=== PATIENT | male | born 1940 | race Caucasian/White ===

== ENCOUNTER 2019-08-17 13:56 | Inpatient (IN) | payer MEDICARE ==
[2019-08-17] MEDS ORDERED: hydrALAZINE 20 MG/ML VIAL ONE (14:35)
[2019-08-17] MEDS ORDERED: Acetaminophen 500 MG TAB PO PRN (15:59)
[2019-08-17] MEDS ORDERED: Ondansetron PF 4 MG/2 ML Vial IVP PRN (15:59)
[2019-08-17] MEDS ORDERED: hydrALAZINE 20 MG/ML VIAL SLOW IVP PRN (15:59)
[2019-08-17] MEDS ORDERED: Ondansetron ODT 4 MG TAB PO PRN (15:59)
[2019-08-17] MEDS ORDERED: Labetalol HCl 100 MG/20 ML VIAL SLOW IVP PRN (15:59)
[2019-08-17] MEDS ORDERED: Aspirin 325 mg Enteric Coated Tablet PO SCH (16:15)
--- NOTE | 2019-08-17 16:54 | MRI ---
MRI Brain WO Con: 08/17/2019 3:59 PM CLINICAL HISTORY: Stroke. COMPARISON: Head CT earlier same day FINDINGS: Exam is limited by persistent patient motion. Extra axial spaces: Mild prominence, due to parenchymal volume loss. Acute infarction: Multifocal restricted diffusion of the right cerebral hemisphere, within the right MCA distribution is present, consistent with multifocal recent infarctions. Ventricular system: Normal in size and morphology for the patient's age. Basal cisterns: Normal. Abnormal distal right carotid flow void. Cerebral parenchyma: Microvascular ischemic changes. Midline shift: None. Cerebellum: Normal. Brainstem: Normal. Paranasal sinuses:Clear IMPRESSION:Multifocal recent infarctions of right MCA distribution. Associated, abnormal right carotid artery flow void.
--- NOTE | 2019-08-17 18:55 | HP ---
PRIMARY CARE PROVIDER: Salena Pack. CHIEF COMPLAINT: Trouble speaking. 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 The patient was last seen normal approximately 11 p.m. on 08/16/2019. The patient apparently was doing regular activities including using his tractor for mowing around their property on 08/16 without difficulty. The patient was noted with difficulty forming words and unintelligible speech. The made to the spit out his chewing tobacco to see if this improved. However, he continued to have difficulty with slurred speech. The patient denied any unilateral weakness, visual disturbance, or cough. The patient has had periodic and sparse medical care over the years and takes only a proton pump inhibitor occasionally for reflux. 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 The patient denies any chronic or routine use of aspirin or cholesterol medications. The patient has had some shortness of breath noticeable in the last 24 to 48 hours of unclear cause. In the emergency room, the patient underwent general evaluation including CT of the brain showing a right frontotemporal infarct. CT angiogram of the head and neck also revealed carotid artery occlusion with collateral flow. The patient received hydralazine in the emergency room in addition to aspirin 324 mg. The patient's speech improved prior to evaluation in the emergency room and denies any unilateral weakness. PAST MEDICAL HISTORY: 1. Smokeless tobacco use. 2. Gastroesophageal reflux disease. 3. Seasonal allergies. 4. History of acute pancreatitis, unknown etiology. PAST SURGICAL HISTORY: Status post left knee replacement. CURRENT MEDICATIONS: Prevacid 30 mg 2 tablets p.o. daily. ALLERGIES: NO KNOWN DRUG ALLERGIES. FAMILY HISTORY: Positive for hypertension. SOCIAL HISTORY: Resides near [place], [place]. Accompanied by his and son in the emergency room. Smokeless tobacco use since the 1949s. Occasional alcohol use. No illicit drug use. REVIEW OF SYSTEMS: CONSTITUTIONAL: Negative for weight loss or gain, ability to conduct usual activities. SKIN: Negative for rash, itching. EYES: Negative for double vision, pain. ENT/MOUTH: Negative for nose bleeding, neck stiffness, pain, tenderness. CARDIOVASCULAR: Negative for palpitations, dyspnea on exertion, orthopnea. RESPIRATORY: Negative for shortness of breath, wheezing, cough, hemoptysis, fever or night sweats. GASTROINTESTINAL: Negative for poor appetite, abdominal pain, heartburn, nausea, vomiting, constipation, or diarrhea. GENITOURINARY: Negative for urgency, frequency, dysuria, nocturia. MUSCULOSKELETAL: Negative for pain, swelling. NEUROLOGIC/PSYCHIATRIC: Negative for anxiety, depression. ALLERGY/IMMUNOLOGIC: Negative for skin rash, bleeding tendency. Otherwise, negative except as stated per HPI. PHYSICAL EXAMINATION: VITAL SIGNS: On admission, blood pressure 212/111, pulse 65, respiratory rate 20, temperature 98 degrees Fahrenheit, and O2 saturation 98% on room air. GENERAL APPEARANCE: This is an 79-year-old male, alert, responsive, and in no acute distress. HEENT: Pupils are equal, round, and reactive to light and accommodation. Extraocular muscles are intact. No scleral icterus. No conjunctival injection. Nares patent. OP is clear. Nicotine staining to all teeth. NECK: Supple. No cervical adenopathy. No thyromegaly. No carotid bruits. No JVD appreciated. Cervical spine with full active and passive range of motion. No meningeal signs noted. CHEST: Lungs are clear to auscultation bilaterally. CARDIOVASCULAR: S1 and S2 without noted murmur, rub, or gallop. ABDOMEN: Obese, soft, nontender, and nondistended. Bowel sounds are positive in all 4 quadrants. There is no hepatosplenomegaly. No abdominal bruits. No rebound or guarding appreciated. EXTREMITIES: Warm and dry with fair turgor. No clubbing, cyanosis, or asymmetric edema appreciated. Pulses palpable distally at the dorsalis pedis, posterior tibial, and popliteal arteries bilaterally. Capillary refill less than 2 seconds. NEUROLOGIC: Mild dysarthria. Rest of the cranial nerves 2 through 12 is grossly intact. No other focal or lateralizing signs appreciated. The patient not observed ambulatory during this exam. PERTINENT LABORATORY AND X-RAY FINDINGS: BUN 15, creatinine 1.49, estimated GFR 45, calcium 9.7, total bilirubin 1.3. LFTs within normal limits. Troponin-I negative x1. BNP 19.9. Albumin 4.4. CBC showed a white blood cell count of 7.1, hemoglobin 17, hematocrit 54, platelet count 260, with normal differential. PT 12.1, INR 0.9, and PTT 26.4. CT of the brain without contrast dated 08/17/2019, showed right frontotemporal infarct. CT angiogram of the head and neck showed complete occlusion of the right carotid bifurcation and proximal right internal carotid artery with collateral flow. EKG dated 08/17/2019, by my interpretation, shows sinus mechanism with heart rates in the 80s. Normal R-wave progression noted in the precordial leads. Normal axis. Low voltage QRS tracing noted. No acute ST-T wave changes appreciated. ASSESSMENT AND PLAN: 1. Acute right frontotemporal cerebrovascular accident. Questionable ischemic versus embolic. The patient will be admitted to the stroke unit. Given the patient's right carotid artery stenosis, embolic phenomenon potential. Continue aspirin 325 mg daily. Continue general stroke protocol with neurology consultation. PT, OT, and speech therapy evaluation. Check fasting lipid profile in the a.m. Check 2D transthoracic echocardiogram. 2. Right carotid artery stenosis. Questionable acute/subacute process. Consult Vascular Surgery Service for recommendations and management. Likely a chronic condition and may consider medical therapy as priority. 3. Chronic kidney disease stage 3. Avoid nephrotoxic agents and limit contrast exposure. Repeat creatinine and monitor trend. 4. Hypertensive crisis. Continue permissive hypertension per acute stroke protocol. IV hydralazine/labetalol p.r.n. 5. Smokeless tobacco abuse. Initiate transdermal nicotine at 14 mg daily. 6. Prophylaxis. SCDs while in bed. Pepcid 20 mg p.o. b.i.d. 7. Code status is full. Surrogate medical decision maker is the patient's spouse. Job ID: [id number]
[2019-08-17] MEDS: Atorvastatin Calcium 40 MG TAB PO SCH (22:12)
[2019-08-17] MEDS: Famotidine 20 MG TAB PO SCH (22:12)
[2019-08-17] MEDS: Nicotine 14 MG PATCH TD SCH (22:13)
[2019-08-17 22:27] VITALS: BMI 32.5
[2019-08-18 04:48] LABS: Hemoglobin 16.4 g/dL (14.0-18.0); Mean Corpuscular HGB CONC 32.4 g/dL (32.0-36.0); Mean Corpuscular Hemoglobin 29.9 pg (27.0-31.0); Mean Corpuscular Volume 92.2 fL (78.0-98.0); Mean Platelet Volume 7.7 fL (7.4-10.4); Platelet Count 255 thou/uL (130-400); RBC Distribution Width 12.8 % (11.5-14.5); Red Blood Cell (RBC) Count 5.49 mill/uL (4.70-6.10); White Blood Cell (WBC) Count 8.3 thou/uL (4.8-10.8)
[2019-08-18 04:49] LABS: Eosinophils 3 % (0-10); Lymphocytes 23 % (21-51); MDiff Complete? YES; Monocytes 8 % (0-10); Neutrophil 66 % (42-75); Platelet Morphology Comment Appears Adequate
[2019-08-18 04:58] LABS: Anion Gap 13 mmol/L (10-20); BUN (Urea Nitrogen) 15 mg/dL (8.4-25.7); Calc. Creatinine Clearance 56 mL/min (70-130); Carbon Dioxide 24 mmol/L (23-31); Cardiac Risk 4.9 (Less than 4.5); Chloride 104 mmol/L (98-107); Cholesterol 197 mg/dl (< 200 Desired); Estimated GFR-MDRD 49; Glucose 105 mg/dL (83-110); HDL Cholesterol 40 mg/dL (>60 Neg Risk); LDL Cholesterol, Calculated 144 mg/dL; Potassium 3.8 mmol/L (3.5-5.1); Sodium 137 mmol/L (136-145); Triglycerides 63 mg/dL (Less than 150)
[2019-08-18] MEDS: Famotidine 20 MG TAB PO SCH ×2 (07:53→21:03)
[2019-08-18] MEDS ORDERED: Aspirin 325 mg Enteric Coated Tablet PO SCH (09:00)
--- NOTE | 2019-08-18 11:21 | CON ---
DATE OF TELEMEDICINE CONSULTATION: 08/18/2019 CHIEF COMPLAINT: Dysarthria. HISTORY OF PRESENT ILLNESS: The patient reports that his brought him to the hospital because of speech problems. His blood pressure was high when he came in. He did not report any weakness or any tingling or numbness or dizziness, loss of consciousness or other symptoms. PREVIOUS MEDICAL HISTORY: The patient has history of gastroesophageal reflux disease and pancreatitis per chart, but he denies both. He also uses smokeless tobacco and he has seasonal allergies. PAST SURGICAL HISTORY: He is status post left knee replacement in the past. MEDICATIONS: At home, he takes Prevacid 2 tablets per day. ALLERGIES: NO KNOWN DRUG ALLERGIES. FAMILY HISTORY: His father at 52 from an [place]. Mother in her 70s from cancer. There is no family history of CVA. He has 2 sisters, one passed at 65. He is not sure why, but she was in [place]. His other sister is 40 and is healthy. SOCIAL HISTORY: He lives with his . He uses smokeless tobacco and occasional alcohol. No drug use. REVIEW OF SYSTEMS: PULMONARY: Negative for shortness of breath or cough. GI: Negative for nausea, vomiting, or diarrhea. NEUROLOGIC: Positive for dysarthria, which was transient. DERMATOLOGIC: Negative for any skin rash. HEMATOLOGIC: Negative for any bleeding, diathesis, or any platelet dysfunction. PSYCHIATRIC: Negative for depression or anxiety. OPHTHALMOLOGIC: Negative for any vision issues. LABORATORY DATA: White count 8.3, hemoglobin 16.4, hematocrit 50.6, platelet count 255. Chemistry; sodium 137, potassium 3.8, chloride 104, bicarb 24, BUN 15, creatinine 1.9, glucose 105. BNP 19.9. Cholesterol and lipid profile are within normal limits and his MRI of the brain was completed yesterday and brain MRI shows multifocal recent infarcts in the right MCA distribution and associated abnormal right carotid flow void and CT angiogram of the little traverse of [place] with contrast also showed the same finding with blockage in the right MCA segment. I did not find a CT angio of the neck area. Echocardiogram is pending. PHYSICAL EXAMINATION: VITAL SIGNS: Temperature 98, pulse 74, blood pressure 123/80, respiratory rate 18, and O2 sats 95. CHEST: Clear vesicular breathing. CARDIOVASCULAR: S1 and S2 heard. No murmurs. ABDOMEN: Soft and nontender. No organomegaly noted. NEUROLOGIC: Higher intellectual functions; normal orientation to time, place, and person. Appropriate conversation. Cranial nerve examination normal. Pupils 2 mm bilaterally and normal extraocular movements. Tongue midline. No atrophy noted. Very mild right facial asymmetry noted and hearing is normal. Motor exam; bulk normal, tone normal. Strength 5/5 in iliopsoas, hamstrings, quadriceps, ankle dorsiflexion, plantar flexion, deltoid, biceps, triceps, wrist extension and flexion, finger extension and flexion bilaterally. Cerebellar, normal [id number], hlvq-[id number]-[id number], and sensory normal touch bilaterally. Deep tendon reflexes 1+ throughout. Gait not tested. IMPRESSION: The patient is an 79-year-old man with family history of myocardial infarction and cancer, comes in with history of dysarthria and he does not give any history of prior strokes or any neurological events. His current examination is normal. However, he has blocked ICA in the right along with strokes in the right MCA distribution. At this time, it is important to find out whether he is a candidate for carotid endarterectomy. TREATMENT PLAN: Continue aspirin and statin for now. Please obtain CT angiogram of the neck, I ordered that study. Please complete his stroke workup including echocardiogram. I will see the patient tomorrow. Job ID: [id number] [facility]
--- NOTE | 2019-08-18 12:29 | PDOC.HOSPP ---
- Subjective Encounter Date: 08/18/19 Encounter Time: 09:00 Subjective: awake, a bit emotional no weakness in his extremities is able to communicate better this morning ate his breakfast well with no choking. - Objective Vital Signs & Weight: Vital Signs (12 hours) Temp Pulse Pulse Pulse Resp BP BP 08/18/19 11:45 97.7 F 78 18 08/18/19 11:10 79 85 162/70 H 123/71 08/18/19 07:49 98 F 74 18 08/18/19 03:30 98.7 F 79 22 H BP Pulse Ox 08/18/19 11:45 147/69 H 95 08/18/19 11:10 08/18/19 07:49 123/80 95 08/18/19 03:30 159/88 H 96 Weight Weight 206 lb 12.8 oz I&O: 08/17/19 08/18/19 08/19/19 06:59 06:59 06:59 Intake Total 480 Balance 480 Result Diagrams: 08/18/19 04:06 08/18/19 04:06 Hospitalist ROS - Medication Medications: Active Medications Generic Name Dose Route Start Last Admin Trade Name Freq PRN Reason Stop Dose Admin Atorvastatin Calcium 40 mg 08/17/19 21:00 08/17/19 22:12 Lipitor PO 40 mg HS AMAN Administration Famotidine 20 mg 08/17/19 21:00 08/18/19 07:53 Pepcid PO 20 mg BID AMAN Administration Nicotine 14 mg 08/17/19 16:00 08/17/19 22:13 Nicoderm Patch TD Not Given Q24HR AMAN - Exam General Appearance: NAD, awake alert Eye: PERRL, anicteric sclera ENT: no oropharyngeal lesions, moist mucosa Neck: supple, no JVD Heart: RRR, no murmur Respiratory: no wheezes, no rales Gastrointestinal: soft, non-tender, non-distended, normal bowel sounds Extremities: no cyanosis, no edema Neurological - other findings: no focal motor deficits, is right handed Psychiatric: normal affect, A&O x 3 Hosp A/P (1) Acute CVA (cerebrovascular accident) Code(s): I63.9 - CEREBRAL INFARCTION, UNSPECIFIED Status: Acute (2) HTN (hypertension) Code(s): I10 - ESSENTIAL (PRIMARY) HYPERTENSION Status: Chronic Qualifiers: Hypertension type: essential hypertension Qualified Code(s): I10 - Essential (primary) hypertension (3) CKD (chronic kidney disease) stage 2, GFR 60-89 ml/min Code(s): N18.2 - CHRONIC KIDNEY DISEASE, STAGE 2 (MILD) Status: Chronic (4) Dyslipidemia Code(s): E78.5 - HYPERLIPIDEMIA, UNSPECIFIED Status: Chronic (5) Carotid artery disease Code(s): I73.9 - PERIPHERAL VASCULAR DISEASE, UNSPECIFIED Status: Acute Qualifiers: Carotid artery disease type: occlusion Laterality: right Qualified Code(s ): I65.21 - Occlusion and stenosis of right carotid artery - Plan is on asp, lipitor htn is well controlled CTA showed right carotid occlusion at bifurcation MRI showed multifocal right mca infarcts might have underlying afib as well, current rhythm is sinus echo is pending PT/OT and speech eval spiritual consult gentle iv hydration x1 liter NS
[2019-08-18] MEDS ORDERED: Sodium Chloride 0.9% 1,000 ML IV SCH (12:45)
--- NOTE | 2019-08-18 16:01 | RAD ---
AP CHEST: 08/18/19 INDICATION: Question infiltrate or pneumonia. COMPARISON: 11/22/17. Borderline cardiomegaly. The lungs appear well aerated and clear. No evidence of infiltrate or vascul ar congestion. IMPRESSION: No acute lung process identified. POS: TPC
[2019-08-18] MEDS: Nicotine 14 MG PATCH TD SCH (17:11)
--- NOTE | 2019-08-18 17:51 | CON ---
DATE OF CONSULTATION: 08/18/2019 REASON FOR CONSULTATION: Evaluate the patient with right hemispheric stroke and occluded right carotid artery. HISTORY OF PRESENT ILLNESS: Mr. Arias was in his usual state of health yesterday. His went to visit him on the tractor and found him to be dysarthric. He was unable to find his words. She took him to the emergency department in [place], and by the time they arrived, his aphasia had completely resolved. Workup has included an MRI of the brain, which shows multiple acute infarcts. CT angiogram of the neck shows an occluded right internal carotid artery at the bifurcation. The patient has no previous history of cerebrovascular disease. He does use tobacco. He states he has no previous cardiac history. PAST MEDICAL HISTORY: 1. GERD. 2. History of pancreatitis. PAST SURGICAL HISTORY: Left knee replacement. MEDICATIONS: Prevacid 60 mg daily. ALLERGIES: NONE. SOCIAL HISTORY: He lives in [place]. He chews tobacco. REVIEW OF SYSTEMS: Negative except as above. PHYSICAL EXAMINATION: GENERAL: This is a moderately obese gentleman, resting comfortably on the telemetry unit. VITAL SIGNS: Height 5 feet 7 inches, weight is not measured, temperature is 98.7, pulse is 79 and regular, and blood pressure is 159/88. HEENT: Sclerae nonicteric. Pupils are equal and round bilaterally. NECK: Supple. He does not have a carotid bruit. CHEST: Clear bilaterally. HEART: Rhythm is regular without murmur. ABDOMEN: Soft and nontender. EXTREMITIES: No edema. NEUROLOGIC: Motor function is equal and symmetric bilaterally. His speech is at baseline. He has no visual disturbances. ASSESSMENT AND PLAN: I have reviewed his studies and he has an occluded right internal carotid artery. He is status post right hemispheric cerebrovascular accident. I will place him on aspirin and Plavix. He is also on a statin. He should be continued lifelong at this point. I will see him back in the office in 3 months and repeat carotid ultrasound. More than likely his occluded carotid artery on the right will not need any therapy and we will follow his left carotid system. Job ID: [id number]
[2019-08-18] MEDS: Atorvastatin Calcium 40 MG TAB PO SCH (21:02)
--- NOTE | 2019-08-18 21:29 | CON ---
DATE OF CONSULTATION: 08/18/2019 INDICATION FOR CONSULTATION: An 79-year-old gentleman who was admitted with a CVA and right internal carotid artery 100% occluded. He was seen by me back last in 2016 at which time he was cleared to undergo surgical procedure. At that time, he had a stress test, which was unremarkable for any evidence of ischemia. He had had some history in the past of paroxysmal atrial fibrillation. He was in the hospital previously in 2014. Since that time, he has not had any evidence of atrial fibrillation that he is aware. Every time he has been seen, he has been in sinus rhythm, but he does not recall having any further palpitations. He has been not on any medications except for the aspirin and Prevacid until till now. However, with a CVA, he will certainly need to be on aspirin and Plavix and with the carotid artery stenosis also, but from a cardiac standpoint, I do not have any indication he has any significant underlying coronary artery disease. His stress test was normal. He has had no evidence of shortness of breath or significant chest discomfort. He remains very active despite being 79 years old. PAST MEDICAL HISTORY: Significant for the paroxysmal atrial fibrillation noted in 2014. He has had some knee surgery. ALLERGIES: NONE. FAMILY HISTORY: Noncontributory except his father did have myocardial infarction at age 52 and his paternal grandfather also had myocardial infarction at age 52. SOCIAL HISTORY: He has some occasional alcohol use, but pretty rare. No smoking, but he does chew tobacco. ALLERGIES: NONE. PRESENT MEDICATIONS: Include: 1. Nicoderm patch. 2. Aspirin 325 mg daily, decreased down to 81 mg daily. 3. Lipitor 40 mg daily. 4. Plavix 75 mg daily. 5. Pepcid 20 mg b.i.d. 6. He is on other p.r.n. medications. REVIEW OF SYSTEMS: A 12-point review of systems is unremarkable except for what was noted in the history of present illness. He has been very healthy otherwise without any significant complaints. PHYSICAL EXAMINATION: GENERAL: Reveals well-developed, well-nourished gentleman. VITAL SIGNS: Blood pressure is 156/90, earlier it was 127/72, heart rates in the 80s and shows a sinus rhythm, respiratory rate is 18 and O2 saturation is 94%. He is afebrile. HEENT: Shows head to be normocephalic and atraumatic. NECK: Difficult to palpate the right carotid pulse. He does have a soft carotid bruit on the right side. I do not hear anything on the left side as far as any murmurs or bruits and most likely well on the right side, it could be just from the external carotid, but it is very difficult to hear and did not hear anything. CHEST: Otherwise, his chest was clear to auscultation without rales, rhonchi, or wheezing. CARDIOVASCULAR: Reveals a regular rate and rhythm. There were no significant murmurs, heaves, thrills, bruits, or rubs noted. He did have a very soft murmur in the aortic area, but very soft diastolic murmur, most likely some aortic valve regurgitation. Otherwise, no significant stenosis is noted. ABDOMEN: Soft and nontender. Positive bowel sounds are present. No organomegaly or masses were noted. Femoral pulses are present. Popliteal pulses are present. NEUROLOGICAL: The patient at this time appears to be intact. I cannot elicit any significant gross focal motor deficits. His speech is within normal limits. LABORATORY DATA: Shows a hemoglobin of 16.4, WBC of 8.3. Sodium was 137, potassium 3.8. His BUN was 15 and creatinine of 1.39. Troponin I was normal. His LDL is 144, this is certainly elevated. IMPRESSION: 1. Elderly gentleman who has suffered a cerebrovascular accident due to a right internal carotid artery occlusion. According to the patient, he has had no previous neurological problems. However, the MRI did show evidence of multifocal recent infarctions of the right middle cerebral artery distribution. Most likely these are recent changes due to the internal carotid. 2. History in the past of paroxysmal atrial fibrillation. I have not had any documented atrial fibrillation since I have been following this patient is 2017. It does not mean he does not have any atrial fibrillation, but he will be placed on medications at this time. We will certainly see him back in the office and may plan for an event monitor to see whether or not he has any episodes of atrial fibrillation. If his blood pressure tolerates, I may start a low-dose of beta blockers or calcium blockers to decrease the risk of further episodes of atrial fibrillation, most likely the calcium blockers would be more beneficial than actually the even beta blockers. We will start him on a low dose of diltiazem at 180 mg daily. He has not been on any beta blockers recently and also has not had any calcium blockers either. 3. Hypercholesterolemia. He has been started on atorvastatin, would agree with this and will need to be followed up for evaluation of future cholesterol levels. Job ID: [id number]
[2019-08-19] MEDS: Famotidine 20 MG TAB PO SCH (08:39)
[2019-08-19] MEDS ORDERED: Aspirin 81 mg Enteric Coated Tablet PO SCH (09:00)
[2019-08-19] MEDS ORDERED: Clopidogrel Bisulfate 75 MG TAB PO SCH (09:00)
[2019-08-19 11:42] VITALS: BP 136/103; TEMP 98.4
--- NOTE | 2019-08-19 15:46 | DIS ---
DATE OF ADMISSION: 08/17/2019 DATE OF DISCHARGE: 08/19/2019 DISCHARGE DISPOSITION: To home. PRIMARY DISCHARGE DIAGNOSES: Acute multifocal cerebrovascular accident, right carotid artery stenosis, chronic kidney disease stage 2, dyslipidemia, and hypertension. PROCEDURES DONE DURING HOSPITALIZATION: CT angio of brain and neck showed right carotid occlusion at the bifurcation. MRI brain showed multifocal right MCA infarct. Echo with 2D Doppler showed EF of 50% to 55%. Grade 1/3 diastolic dysfunction. Chest x-ray done showed no acute cardiopulmonary abnormalities. H and H 16 and 50, platelet count 255, BUN 15, creatinine 1.3, LDL 144, total cholesterol 197, triglyceride 63, HDL 40, BNP 19, and troponin x1 negative. DISCHARGE MEDICATIONS: 1. Aspirin 81 mg p.o. daily. 2. Plavix 75 mg p.o. daily. 3. Atorvastatin 40 mg p.o. nightly. 4. Cardizem CD 120 mg p.o. daily. 5. Lansoprazole 30 mg p.o. daily. ALLERGIES: NO KNOWN DRUG ALLERGIES. DISCHARGE PLAN: The patient to follow up with primary care physician in 1 week. He also needs follow up with Dr. Vasu Clay in 3 to [address] Cam in 1 week. BRIEF COURSE DURING HOSPITALIZATION: The patient initially went to [place] [facility] with complaints of slurred speech and confusion. An initial workup done there including CT angio of brain showed findings of multifocal infarcts in the right MCA territory with occlusion of right carotid artery at the bifurcation. He was admitted to stroke unit. He has had complete stroke workup done. MRI brain done showed multifocal infarcts in the right MCA distribution infarct. His medications were optimized. He has had consultation with Dr. Vasu Clay for Vascular Surgery, Dr. Liliam Meek Neurology, and Dr. Cam for Cardiology. Neurologically, the patient remained intact as far as his motor system is concerned. He was seen ambulating in the hallway. His speech completely resolved during his brief stay here. He needs to follow up with Dr. Clay to ensure the left carotids remain patent with regular followups. He has had an even monitor placed on him to rule out atrial fibrillation. His cardiac rhythm was in sinus all through his stay on telemetry. His medications were optimized. He was placed on aspirin, Lipitor, and Plavix along with Cardizem CD 120 mg daily. He has remained neurologically and hemodynamically stable. Home Health will be set up. The patient and family would like to have outpatient rehab in [facility]. I have given complete updates to the patient and his at bedside. Please note, I have seen and examined the patient on the day of discharge. Job ID: [id number]
--- NOTE | 2019-08-19 18:13 | PDOC.CPN ---
- Subjective Date: 08/19/19 Time: 08:30 Interval history: The pt was seen and examined. No overnight events. No cardiac complaints. He denied dizziness or lightheadedness. He has been walking to bathroom without dizziness or lightheadednss or any cardiac complaints. - Objective Allergies/Adverse Reactions: Allergies Allergy/AdvReac Type Severity Reaction Status Date / Time No Known Allergies Allergy Verified 08/18/19 03:43 Vital Signs & Weight: Vital Signs Temp Pulse Resp BP BP Pulse Ox 08/19/19 11:41 98.4 F 87 18 136/103 H 94 L 08/19/19 08:40 85 157/93 H 08/19/19 08:00 97 08/19/19 07:56 97.9 F 85 20 157/93 H 97 Weight 206 lb 12.8 oz - Medication Contraindications No Anticoagulant reason: Treatment not indicated - Physical Exam General: alert & oriented x3 HEENT: mucus membranes moist Neck: supple neck Cardiac: regular rate and rhythm, S1/S2 Lungs: clear to auscultation Abdomen: unremarkable Skin: clear Musculoskeletal: normal range of motion - Labs Result Diagrams: 08/18/19 04:06 08/18/19 04:06 - Telemetry Sinus rhythms and dysrhythmias: sinus rhythm - Assessment/Plan Assessment/Plan: 1. S/p CVA with MRI showed multifocal right mca infarcts - The pt will d/c home with Heart monitor to r/o Afib 2. Hx of Prox Afib in 2014 - remains in SR during this admission; start Diltiazem 180mg qd; on ASA and Plavix 3. Carotid artery disease with CTA showed right carotid occlusion at bifurcation - another Carotid study by Dr Clay in 3 months 4. HTN - stable with current med 5. CKD stage 2 - unchanged 6. HLD - on Lipitor 7. Hx of dipping tobacco - strongly recommend to stop MAR reviewed * The pt is stable to d/c home with 3 wk EVR * The pt will f/u with Dr Cam' office within 2-4 wks.
== END 2019-08-19 13:27 | disposition home health service (06) | DRG 65 ==
LOC: ERS 13:56 → 2NO 15:36 → OBSVTOIN 15:59 → 2SE 08-18 12:59
PROVIDERS: ADMIT Family Medicine; ATTEND Family Medicine
DX: I63.231 Cerebral infarction due to unspecified occlusion or stenosis of right carotid arteries (principal); I16.9 Hypertensive crisis, unspecified; R47.81 Slurred speech; N18.2 Chronic kidney disease, stage 2 (mild); E78.5 Hyperlipidemia, unspecified; I12.9 Hypertensive chronic kidney disease with stage 1 through stage 4 chronic kidney disease, or unspecified chronic kidney disease; F17.290 Nicotine dependence, other tobacco product, uncomplicated; K21.9 Gastro-esophageal reflux disease without esophagitis
CPT/HCPCS: 36415; 70551; 71045; 80048; 80061; 83880; 85007; 85027; 93005; 93306; 96374; J0360

== ENCOUNTER 2019-08-21 17:22 | Inpatient (IN) | payer MEDICARE ==
[2019-08-21 17:53] LABS: INR-International Normal Ratio 0.9; Prothrombin Time 12.4 SEC (12.0-14.7)
--- NOTE | 2019-08-21 17:58 | CT ---
Exam: Head CT without contrast HISTORY: Left facial droop. Weakness. Tingling. COMPARISON: 08/17/2019 Correlation: Brain MRI 08/17/2019 FINDINGS: Hemorrhage: No intraparenchymal hemorrhage or extra-axial hematoma. Brain parenchyma: Expected evolutionary changes involving a subacute right frontal lobe MCA distribut ion infarct. Remainder the cerebrum demonstrates preservation of cortical amato-white matter differentiation. Stable white matter hypodensities due to chronic small vessel ischemic change Ventricular system: Ventricles and sulci are patent and symmetric. Calvarium: Intact. Sinuses and mastoid air cells: Adequate aeration. IMPRESSION: Expected evolutionary changes compatible with a subacute right MCA distribution infarct. Result of st udy discussed with Dr. Lugo 08/21/2019 at 5:54 PM Code CR
[2019-08-21 18:02] LABS: PTT 18.7 SEC (22.9-36.1)
[2019-08-21 18:11] LABS: #Eosinphils 0.1 thou/uL (0.0-0.7); #Lymphocytes 1.9 thou/uL (1.20-3.40); #Monocytes 0.8 thou/uL (0.11-0.59); #Neutrophils 8.1 thou/uL (1.40-6.50); %Basophils 0.3 % (0.0-1.0); %Lymphocytes 17.5 % (21.0-51.0); %Monocytes 6.9 % (0.0-10.0); %Neutrophils 74.2 % (42.0-75.0); Hemoglobin 17.1 g/dL (14.0-18.0); Mean Corpuscular HGB CONC 33.1 g/dL (32.0-36.0); Mean Corpuscular Hemoglobin 31.1 pg (27.0-31.0); Mean Corpuscular Volume 93.9 fL (78.0-98.0); Platelet Count 221 thou/uL (130-400); RBC Distribution Width 12.7 % (11.5-14.5); Red Blood Cell (RBC) Count 5.49 mill/uL (4.70-6.10); White Blood Cell (WBC) Count 10.9 thou/uL (4.8-10.8)
[2019-08-21 18:26] LABS: ALT (SGPT) 30 U/L (8-55); AST (SGOT) 29 U/L (5-34); Alkaline Phosphatase 74 U/L (40-110); Anion Gap 14 mmol/L (10-20); BUN (Urea Nitrogen) 17 mg/dL (8.4-25.7); Bilirubin, Total 1.3 mg/dL (0.2-1.2); Calc. Creatinine Clearance 0 mL/min (70-130); Carbon Dioxide 20 mmol/L (23-31); Chloride 104 mmol/L (98-107); Estimated GFR-MDRD 45; Glucose 119 mg/dL (83-110); Sodium 134 mmol/L (136-145)
[2019-08-21] MEDS ORDERED: Aspirin 325 MG TAB ONE (18:44)
--- NOTE | 2019-08-21 19:16 | HP ---
PRIMARY CARE PHYSICIAN: [facility]. REASON FOR ADMISSION: CVA. HISTORY OF PRESENT ILLNESS: An 79-year-old male, who was recently admitted in our hospital on August 17, 2019. At that time, the patient was having left-sided facial droop and trouble speaking. He was admitted to Stroke Floor and he had full stroke workup done, which showed multifocal right MCA territory infarct. The patient had CT angiography of neck and brain, which showed total occlusion of right carotid bifurcation as well as proximal internal carotid artery and collateral flow. Echocardiography showed diastolic dysfunction. The patient was found with total cholesterol 197 and LDL cholesterol 144. During that admission, the patient was evaluated by Neurology, Cardiology, and cardiovascular surgeon. The patient was deemed not a surgical candidate for carotid stenosis as per cardiovascular surgeon. The patient was kept on aspirin and Plavix. The patient was discharged on August 19, 2019. At that time, the patient was doing much better. As per the patient's , facial droop was improved and his strength was normal. He was walking by himself. At home today outside, he was in his yard and his symptoms started around 10 o'clock with mild facial drooping on the left side and he was dropping things from the left hand. He is right-handed. He did not have any trouble walking. The patient's also did not notice any significant problem with speech, but he was having drooling from the left side as well as left upper extremity was weak, and finally, she decided to bring him to emergency room around 4:30 p.m. for checkout. In the emergency room, CT brain showed involutionary changes without any acute process. The patient did not have any chest pain, headache, seizure. The patient did not have any palpitation, dizziness, or shortness of breath. PAST MEDICAL HISTORY: Gastroesophageal reflux disease, seasonal allergy, history of pancreatitis, history of multifocal right MCA territory infarct, carotid occlusion on the right side, hypertension, dyslipidemia, and diastolic dysfunction. PAST SURGICAL HISTORY: Left knee replacement. CURRENT MEDICATIONS: The patient was discharged on, 1. Aspirin 81 mg daily. 2. Plavix 75 mg daily. 3. Lipitor 40 mg daily. 4. Cardizem CD 120 mg daily. 5. Lansoprazole 30 mg p.o. daily. ALLERGIES: NO KNOWN DRUG ALLERGIES. PAST PSYCHIATRIC HISTORY: Reviewed and negative. FAMILY HISTORY: Positive for hypertension. SOCIAL HISTORY: The patient lives in [facility]. He is and his is present at bedside. He has a history of smokeless tobacco use since 1950. Denies any alcohol abuse. Denies any other illicit drug abuse. REVIEW OF SYSTEMS: CONSTITUTIONAL: Negative for weight loss or gain, ability to conduct usual activities. SKIN: Negative for rash, itching. EYES: Negative for double vision, pain. ENT/MOUTH: Negative for nose bleeding, neck stiffness, pain, tenderness. CARDIOVASCULAR: Negative for palpitations, dyspnea on exertion, orthopnea. RESPIRATORY: Negative for shortness of breath, wheezing, cough, hemoptysis, fever or night sweats. GASTROINTESTINAL: Negative for poor appetite, abdominal pain, heartburn, nausea, vomiting, constipation, or diarrhea. GENITOURINARY: Negative for urgency, frequency, dysuria, nocturia. MUSCULOSKELETAL: Negative for pain, swelling. NEUROLOGIC/PSYCHIATRIC: Negative for anxiety, depression. ALLERGY/IMMUNOLOGIC: Negative for skin rash, bleeding tendency. Please see my HPI for pertinent positives and negatives. All other review of systems reviewed and negative except as mentioned in HPI. PHYSICAL EXAMINATION: VITAL SIGNS: Currently, blood pressure 167/82, pulse 88, respiratory rate 20, temperature 98.6, saturation 95% on room air, and weight 103 kg. GENERAL: The patient is currently alert and awake. No obvious acute distress. HEENT: Head; normocephalic and atraumatic. Eyes; pupils round and reactive to light. Extraocular muscle intact. ENT, oropharynx within normal limits. Moist mucous membranes. No oral lesion. No pharyngeal erythema. No exudate. NECK: Supple. No JVD. No thyromegaly. No carotid bruit. No jugular venous distention. LUNGS: Clear to auscultation without any rhonchi or rales. CARDIAC: S1 and S2. Regular without any murmur. No gallop. No rub. ABDOMEN: Soft and benign without any tenderness. EXTREMITIES: No edema. NEUROLOGIC: The patient does have left upper extremity weakness. The patient has a left-sided facial droop. Left lower extremity is within normal limit. LABORATORY STUDIES: CT brain showing involutionary changes as expected from recent right MCA CVA. CBC; WBC 10.9, hemoglobin 17.1, platelet 221. INR 0.9. Troponin less than 0.010. EKG showing normal sinus rhythm without any ischemic changes. ASSESSMENT AND PLAN: 1. Recurrent CVA, right MCA territory. 2. Right carotid stenosis, complete occlusion in bifurcation and proximal internal carotid artery. Unable to do any surgical intervention. Hypertension, dyslipidemia, gastroesophageal reflux disease. PLAN: 1. Admission to the Stroke Floor, Neurology consultation. We will continue aspirin 81 mg daily, Plavix 75 mg p.o. daily, Lipitor 40 mg p.o. daily, Cardizem CD 120 mg p.o. daily. Neuro check every 4 hourly. The patient already had full workup done recently including echocardiography, MRI and CT [place] [facility] [place]. Further investigation will defer to healthcare network consultant if needed. 2. Deep venous thrombosis prophylaxis with Lovenox 40 mg subcu daily. Gastrointestinal prophylaxis, while in hospital, we will continue Pepcid 20 mg p.o. b.i.d. CODE STATUS: The patient is full code. The patient's is surrogate decision maker. DISPOSITION PLAN: Based on clinical course, we are expecting the patient's stay in hospital more than 2 midnights. Plan of care discussed with the patient and at bedside in the emergency room. Job ID: [id number]
[2019-08-21] MEDS ORDERED: Ondansetron PF 4 MG/2 ML Vial IVP PRN (21:03)
[2019-08-21] MEDS ORDERED: Acetaminophen 325 MG TAB PO PRN (21:03)
[2019-08-21] MEDS ORDERED: Ondansetron ODT 4 MG TAB SL PRN (21:03)
[2019-08-21 22:05] VITALS: BMI 34.0
[2019-08-21] MEDS: Melatonin 3 MG TAB PO PRN (22:45)
[2019-08-22] MEDS ORDERED: Senokot S 8.6-50 MG TAB PO PRN (01:48)
[2019-08-22] MEDS ORDERED: Calcium Carbonate 500 MG ChewTAB PO PRN (01:48)
[2019-08-22] MEDS ORDERED: Ondansetron ODT 4 MG TAB PO PRN (01:48)
[2019-08-22] MEDS ORDERED: Loperamide HCl 2 MG CAP PO PRN (01:48)
[2019-08-22] MEDS ORDERED: Acetaminophen 325 MG TAB PO PRN (01:48)
[2019-08-22] MEDS ORDERED: HYDROcodone/Acetaminophen 5/325 mg Tablet PO PRN (01:48)
[2019-08-22] MEDS ORDERED: Sodium Chloride 0.65% Nasal 44 ML BOT EA NARE PRN (01:48)
[2019-08-22] MEDS ORDERED: Diabetic Tussin 200 MG/10 ML UDCUP PO PRN (01:48)
[2019-08-22] MEDS ORDERED: Ondansetron PF 4 MG/2 ML Vial IVP PRN (01:48)
[2019-08-22] MEDS ORDERED: Bisacodyl 10 MG SUPP PR PRN (01:48)
[2019-08-22] MEDS ORDERED: Artificial Tears 18 DROP/0.9 ML EA EYE PRN (01:48)
[2019-08-22] MEDS ORDERED: hydrALAZINE 20 MG/ML VIAL SLOW IVP PRN (01:48)
[2019-08-22] MEDS ORDERED: Loratadine 10 MG TAB PO PRN (01:48)
[2019-08-22] MEDS ORDERED: Clopidogrel Bisulfate 75 MG TAB PO SCH ×2 (02:00→09:00)
[2019-08-22] MEDS ORDERED: Famotidine 20 MG TAB PO SCH (02:00)
[2019-08-22] MEDS ORDERED: Atorvastatin Calcium 40 MG TAB PO SCH (02:00)
[2019-08-22 05:07] LABS: #Basophils 0.1 thou/uL (0.0-0.2); #Eosinphils 0.2 thou/uL (0.0-0.7); #Lymphocytes 2.2 thou/uL (1.20-3.40); #Monocytes 0.5 thou/uL (0.11-0.59); #Neutrophils 4.4 thou/uL (1.40-6.50); %Eosinophils 2.7 % (0.0-10.0); %Lymphocytes 29.2 % (21.0-51.0); %Monocytes 7.4 % (0.0-10.0); %Neutrophils 59.7 % (42.0-75.0); Hemoglobin 15.6 g/dL (14.0-18.0); Mean Corpuscular HGB CONC 32.5 g/dL (32.0-36.0); Mean Corpuscular Hemoglobin 30.1 pg (27.0-31.0); Mean Corpuscular Volume 92.5 fL (78.0-98.0); Mean Platelet Volume 7.9 fL (7.4-10.4); Platelet Count 229 thou/uL (130-400); RBC Distribution Width 12.5 % (11.5-14.5); Red Blood Cell (RBC) Count 5.18 mill/uL (4.70-6.10); White Blood Cell (WBC) Count 7.4 thou/uL (4.8-10.8)
[2019-08-22 05:31] LABS: Anion Gap 12 mmol/L (10-20); BUN (Urea Nitrogen) 16 mg/dL (8.4-25.7); Calc. Creatinine Clearance 65 mL/min (70-130); Calcium 8.9 mg/dL (7.8-10.44); Carbon Dioxide 23 mmol/L (23-31); Chloride 103 mmol/L (98-107); Estimated GFR-MDRD 58; Glucose 99 mg/dL (83-110); Potassium 3.6 mmol/L (3.5-5.1); Sodium 134 mmol/L (136-145)
[2019-08-22 05:48] LABS: Syphilis Antibody Nonreactive (Nonreactive); Syphilis Antibody Index 0.07 S/CO (<1.00 Non-Reactive)
[2019-08-22] MEDS: Aspirin 81 mg Enteric Coated Tablet PO SCH (09:44)
[2019-08-22] MEDS: Folic Acid 1 MG TAB PO SCH (09:48)
[2019-08-22] MEDS: Cyanocobalamin (Vitamin B-12) 1,000 MCG TAB PO SCH (09:48)
[2019-08-22] MEDS: pyridOXINE 50 MG (B6) TAB PO SCH ×2 (09:49→21:20)
[2019-08-22] MEDS: Enoxaparin Sodium 40 MG/0.4 ML SYRINGE SC SCH (09:54)
--- NOTE | 2019-08-22 10:34 | PDOC.HOSPP ---
- Subjective Encounter Date: 08/22/19 Encounter Time: 07:15 Subjective: Patient seen and examined. pt is resting this morning, his son bedside, No overnight events - Objective Vital Signs & Weight: Vital Signs (12 hours) Temp Pulse Pulse Resp BP BP BP 08/22/19 09:46 77 133/65 08/22/19 09:26 77 133/65 08/22/19 07:00 97.6 F 71 18 145/77 H 08/22/19 03:53 98.1 F 62 18 159/75 H 08/21/19 23:57 98.3 F 74 18 155/90 H Pulse Ox 08/22/19 09:46 08/22/19 09:26 08/22/19 07:00 97 08/22/19 03:53 96 08/21/19 23:57 93 L Weight Weight 211 lb I&O: 08/21/19 08/22/19 08/23/19 06:59 06:59 06:59 Intake Total 240 Balance 240 Result Diagrams: 08/22/19 04:53 08/22/19 04:53 Additional Labs: Accuchecks 08/21/19 17:35 POC Glucose 120 H EKG Reviewed by me: Yes Hospitalist ROS - Review of Systems ENT: denies: ear pain, ear discharge, nose pain, nose discharge, nose congestion , mouth pain, mouth swelling, throat pain, throat swelling, other Respiratory: denies: cough, dry, shortness of breath, hemoptysis, SOB with excertion, pleuritic pain, sputum, wheezing, other Cardiovascular: denies: chest pain, palpitations, orthopnea, paroxysmal noc. dyspnea, edema, light headedness, other Gastrointestinal: denies: nausea, vomiting, abdominal pain, diarrhea, constipation, melena, hematochezia, other Genitourinary: denies: dysuria, frequency, incontinence, hematuria, retention, other Musculoskeletal: denies: neck pain, shoulder pain, arm pain, back pain, hand pain, leg pain, foot pain, other - Medication Medications: Active Medications Generic Name Dose Route Start Last Admin Trade Name Freq PRN Reason Stop Dose Admin Aspirin 81 mg 08/22/19 09:00 08/22/19 09:44 Ecotrin PO 81 mg DAILY AMAN Administration Cyanocobalamin 1,000 mcg 08/22/19 09:00 08/22/19 09:48 Vitamin B-12 PO 1,000 mcg DAILY AMAN Administration Diltiazem HCl 120 mg 08/22/19 09:00 08/22/19 09:46 Cardizem Cd PO 120 mg DAILY AMAN Administration Enoxaparin Sodium 40 mg 08/22/19 09:00 08/22/19 09:54 Lovenox SC 40 mg 0900 AMAN Administration Folic Acid 1 mg 08/22/19 09:00 08/22/19 09:48 Folvite PO 1 mg DAILY AMAN Administration Melatonin 3 mg 08/21/19 22:35 08/21/19 22:45 Melatonin PO 3 mg HSPRN PRN Administration Insomnia Pyridoxine HCl 50 mg 08/22/19 09:00 08/22/19 09:49 Vitamin B 6 PO 50 mg BID AMAN Administration Sodium Chloride 10 ml 08/22/19 01:48 08/22/19 09:55 Flush - Normal Saline IVF 10 ml PRN PRN Administration Saline Flush - Exam General Appearance: NAD Eye: PERRL, anicteric sclera ENT: normocephalic atraumatic, no oropharyngeal lesions Neck: supple, symmetric, no JVD, no thyromegaly, no lymphadenopathy Heart: RRR, no murmur, no gallops, no rubs Respiratory: CTAB, no wheezes, no rales, no ronchi Gastrointestinal: soft, non-tender, non-distended, normal bowel sounds, no palpable masses, no hepatomegaly, no guarding, no rigidity Extremities: no cyanosis, no clubbing, no edema Skin: normal turgor, no lesions Neurological: facial droop Neurological - other findings: left UE weakness noted Musculoskeletal: normal tone, normal strength, no muscle wasting Psychiatric: normal affect, normal behavior Hosp A/P (1) CVA (cerebral vascular accident) Code(s): I63.9 - CEREBRAL INFARCTION, UNSPECIFIED Status: Acute Qualifiers: Precerebral and cerebral artery: middle cerebral artery Laterality of affected vessel: left (2) PAF (paroxysmal atrial fibrillation) Code(s): I48.0 - PAROXYSMAL ATRIAL FIBRILLATION Status: Chronic (3) Obesity (BMI 30.0-34.9) Code(s): E66.9 - OBESITY, UNSPECIFIED Status: Chronic (4) Carotid artery disease Code(s): I73.9 - PERIPHERAL VASCULAR DISEASE, UNSPECIFIED Status: Acute Qualifiers: Carotid artery disease type: occlusion Laterality: right Qualified Code(s ): I65.21 - Occlusion and stenosis of right carotid artery (5) Dyslipidemia Code(s): E78.5 - HYPERLIPIDEMIA, UNSPECIFIED Status: Chronic (6) GERD (gastroesophageal reflux disease) Code(s): K21.9 - GASTRO-ESOPHAGEAL REFLUX DISEASE WITHOUT ESOPHAGITIS Status: Chronic Qualifiers: Esophagitis presence: without esophagitis Qualified Code(s): K21.9 - Gastro -esophageal reflux disease without esophagitis (7) HTN (hypertension) Code(s): I10 - ESSENTIAL (PRIMARY) HYPERTENSION Status: Chronic Qualifiers: Hypertension type: essential hypertension Qualified Code(s): I10 - Essential (primary) hypertension (8) Homocysteinemia Code(s): E72.19 - OTHER DISORDERS OF SULFUR-BEARING AMINO-ACID METABOLISM Status: Acute (9) CKD (chronic kidney disease), stage III Code(s): N18.3 - CHRONIC KIDNEY DISEASE, STAGE 3 (MODERATE) Status: Chronic - Plan old records reviewed/req, plan discussed w/ family, PT/OT, adoption social worker, speech therapy, DVT proph w/lovenox 08/22/19 Pt has recurrent right MCA territory CVA, he has carotid stenosis on right side which is complete occlusion and unable to do surgical intervention as per CV surgery in recent past, he has collateral flow, unsure that is responsible for recurrent CVA vs his h/o PAF, though afib has not documented recently, will ask neuro if chronic anticoagulation is option, he has hyperhomocystemia so will start folic acid, B12, B6 today. I spoke with son bedside and explained all result. This time will defer any more investigation to neurology. Medication reviewed as above, symptomatic treatment
[2019-08-22] MEDS ORDERED: Lorazepam 2 MG/ML VIAL SLOW IVP SCH (11:45)
--- NOTE | 2019-08-22 13:09 | MRI ---
MRI BRAIN WITHOUT CONTRAST: COMPARISON: Examination from the previous day. Brain MRI from 08/17/2019. FINDINGS: Multifocal restricted diffusion is present within the right MCA territory, indicative of multifocal r ecent infarctions. There is no mass effect, midline shift or ventriculomegaly. No interval hemorrhagi c susceptibility is demonstrated. IMPRESSION: Redemonstration of multifocal infarctions at the right middle cerebral artery territory. When compare d to prior brain MRI there has been interval increase in cytotoxic edema some of which indicates inte rval temporal evolution as well as the possibility of an increasing volume of ischemic change related to interval progression. POS: Andre
--- NOTE | 2019-08-22 17:54 | CON ---
DATE OF TELEMEDICINE CONSULTATION: 08/22/2019 CHIEF COMPLAINT: Left-sided weakness, which was transient. HISTORY OF PRESENT ILLNESS: I recently saw this patient about a week ago in consultation. At that time, his presenting symptom is for mainly slurred speech and the patient now comes back with left-sided face, arm, and leg weakness, which lasted a few hours. He has not been taking medications particularly antiplatelet agents since discharge. He has been exerting himself and his said he was riding the mule [place] his [place] a while on the date this event happened and the patient's family brought him right away to the hospital. They are aware that he has a right ICA occlusion. PREVIOUS MEDICAL HISTORY: As noted TIA recently and the patient also has history of hypertension, ICA occlusion. SURGICAL HISTORY: None. REVIEW OF SYSTEMS: PULMONARY: Negative for shortness of breath or cough. CARDIAC: Negative for chest pain and palpitations. GI: Negative for nausea, vomiting, or diarrhea. NEUROLOGIC: Positive for left face, arm, and leg weakness. DERMATOLOGIC: Negative for any rash. OPHTHALMOLOGIC: Negative for any vision symptoms. FAMILY HISTORY: Negative for acute stroke. ALLERGIES: HE HAS NO KNOWN DRUG ALLERGIES. LABORATORY DATA: His current workup; white count 7.4, hemoglobin 15.6, hematocrit 48, platelet count 229. Chemistry; sodium 134, potassium 3.6, chloride 103, bicarb 23, BUN 16, creatinine 1.20, glucose 99, calcium 8.9. Homocysteine 33 and his lipid profile is still pending. His MRI scan was completed by the time of this dictation was completed. PHYSICAL EXAMINATION: VITAL SIGNS: Blood pressure is 155/70, temperature 97.5, pulse 66, respiratory rate 20. GENERAL APPEARANCE: Well-built, well-nourished man, who seems comfortable. CHEST: Clear vesicular breathing. CARDIOVASCULAR: S1 and S2 heard. No murmurs. ABDOMEN: Soft, nontender. No organomegaly noted. NEUROLOGIC: Higher intellectual functions normal. Orientation to time, place, person, and appropriate conversation. Cranial nerves, normal extraocular movements. Pupils 2 mm, reactive to light bilaterally. No facial asymmetry noted. Tongue midline. Normal sensation of face. Normal elevation of palate. Motor; bulk normal. Tone normal. Strength 5/5 in upper and lower extremities on the right side. On the left side, it was 5-/5. Muscle groups tested including deltoids, biceps, triceps, wrist extension and flexion, finger extension and flexion, iliopsoas, hamstrings, quadriceps, ankle dorsiflexion and plantar flexion. Deep tendon reflexes 2+ throughout. Cerebellar, normal [id number] and heel-to- pulido. Sensory normal to touch bilaterally. IMPRESSION: The patient with history of recent transient ischemic attack and was discharged on aspirin, Plavix along with statin. The patient's thinks he is not taking his aspirin and Plavix regularly and he developed left arm and face weakness, which lasted a few hours and he was exerting himself beyond normal range on the day of this event. His diagnosis is most consistent with transient ischemic attack. RECOMMENDATIONS: With 2 events occurring within 1 week period, he is at high risk for another stroke. Whether he has sufficient collateral despite the right ICA stenosis, it is difficult to evaluate just based on current MRI readings and CT angiography, which was recently completed. I suggest reconsulting with Vascular Surgery to see if he needs a formal angiogram to determine the degree whether he has collaterals or whether he needs a procedure. I will follow up again tomorrow. Job ID: [id number] [facility]
[2019-08-22 21:07] LABS: Bacteria/HPF None Seen HPF (None Seen); Bilirubin Negative (Negative); Blood, Urine Negative (Negative); Calcium Oxalate Crystals 1+ HPF (None Seen); Clarity Clear (Clear); Glucose, Urine (Dipstick) Normal (Negative); Leukocyte Negative Leu/uL (Negative); Nitrite Negative (Negative); Protein, Urine (Dipstick) Negative (Neg-Trace); RBC/HPF 0-3 HPF (0-3); Squamous Epithelial None Seen HPF (0-3); WBC/HPF 0-3 HPF (0-3)
--- NOTE | 2019-08-22 21:18 | CON ---
DATE OF CONSULTATION: 08/22/2019 HISTORY OF PRESENT ILLNESS: Mr. Arias is an 79-year-old gentleman, who I saw in the hospital approximately a week ago. He presented with a right hemispheric cerebrovascular accident type symptoms, an MRI compatible with multi-infarct right cerebral hemisphere infarcts. He had a carotid study with a CT angiogram, which showed an occluded right carotid system. He was placed on aspirin and Plavix at that time. He re-presented to the hospital with history of left facial droop and left arm weakness. He has had a repeat MRI of his brain, which shows some distention and cerebral edema around the previous infarct. I have been asked for further recommendations. PAST MEDICAL HISTORY: 1. GERD. 2. Occluded right carotid. 3. History of pancreatitis. 4. Hypertension. 5. Dyslipidemia. 6. Diastolic dysfunction. PAST SURGICAL HISTORY: Knee replacement. MEDICATIONS: Prior to admission; 1. Aspirin 81 mg daily. 2. Plavix 75 mg daily. 3. Lipitor 40 mg daily. 4. Cardizem CD 120 mg daily. 5. Lansoprazole 30 mg daily. ALLERGIES: NONE. SOCIAL HISTORY: He lives in [place]. He is . He does not use any alcohol. He used chewing tobacco since the 1950s. PHYSICAL EXAMINATION: Mild left upper extremity weakness with a slight facial droop. IMAGING DATA: I have reviewed his CT angiogram again and his MRI of his brain. ASSESSMENT AND PLAN: Edema around the previous cerebral infarcts, which may be causing his current neurologic symptoms. There is no surgical option for an occluded internal carotid. I would continue his aspirin, Plavix, and blood pressure control as above. Job ID: [id number] [facility]
[2019-08-22] MEDS: Atorvastatin Calcium 40 MG TAB PO SCH (21:20)
[2019-08-22] MEDS: Famotidine 20 MG TAB PO SCH (21:20)
[2019-08-22] MEDS: Melatonin 3 MG TAB PO PRN (21:25)
[2019-08-23] MEDS: Zolpidem Tartrate 5 MG TAB PO PRN ×2 (00:18→20:29)
--- NOTE | 2019-08-23 09:43 | PDOC.HOSPP ---
- Subjective Encounter Date: 08/23/19 Encounter Time: 07:00 Subjective: overall pt is doing well, he is walked good distance and discharged from PT, no overnight event pt's wants cardiology consult to update on device for his heart monitor - Objective Vital Signs & Weight: Vital Signs (12 hours) Temp Pulse Resp BP Pulse Ox 08/23/19 08:31 97 08/23/19 07:27 65 15 132/66 87 L 08/23/19 04:00 99 F 77 20 142/47 H 93 L 08/23/19 00:08 98.9 F 73 20 141/87 H 93 L Weight Weight 211 lb I&O: 08/22/19 08/23/19 08/24/19 06:59 06:59 06:59 Intake Total 240 680 Balance 240 680 Result Diagrams: 08/22/19 04:53 08/22/19 04:53 Radiology Reviewed by me: Yes (MRI report noted) EKG Reviewed by me: Yes (NSR) Hospitalist ROS - Review of Systems Constitutional: denies: fever, chills, sweats, weakness, malaise, other Eyes: denies: pain, vision change, conjunctivae inflammation, eyelid inflammation, redness, other ENT: denies: ear pain, ear discharge, nose pain, nose discharge, nose congestion , mouth pain, mouth swelling, throat pain, throat swelling, other Respiratory: denies: cough, dry, shortness of breath, hemoptysis, SOB with excertion, pleuritic pain, sputum, wheezing, other Cardiovascular: denies: chest pain, palpitations, orthopnea, paroxysmal noc. dyspnea, edema, light headedness, other Gastrointestinal: denies: nausea, vomiting, abdominal pain, diarrhea, constipation, melena, hematochezia, other Genitourinary: denies: dysuria, frequency, incontinence, hematuria, retention, other Musculoskeletal: denies: neck pain, shoulder pain, arm pain, back pain, hand pain, leg pain, foot pain, other Skin: denies: rash, lesions, clay, bruising, other Neurological: reports: weakness. denies: numbness, incoordination, change in speech, confusion, seizures, other - Medication Medications: Active Medications Generic Name Dose Route Start Last Admin Trade Name Freq PRN Reason Stop Dose Admin Aspirin 81 mg 08/22/19 09:00 08/22/19 09:44 Ecotrin PO 81 mg DAILY AMAN Administration Atorvastatin Calcium 40 mg 08/22/19 21:00 08/22/19 21:20 Lipitor PO 40 mg HS AMAN Administration Cyanocobalamin 1,000 mcg 08/22/19 09:00 08/22/19 09:48 Vitamin B-12 PO 1,000 mcg DAILY AMAN Administration Diltiazem HCl 120 mg 08/22/19 09:00 08/22/19 09:46 Cardizem Cd PO 120 mg DAILY AMAN Administration Enoxaparin Sodium 40 mg 08/22/19 09:00 08/22/19 09:54 Lovenox SC 40 mg 0900 AMAN Administration Famotidine 20 mg 08/22/19 21:00 08/22/19 21:20 Pepcid PO 20 mg 2100 AMAN Administration Folic Acid 1 mg 08/22/19 09:00 08/22/19 09:48 Folvite PO 1 mg DAILY AMAN Administration Melatonin 3 mg 08/21/19 22:35 08/22/19 21:25 Melatonin PO 3 mg HSPRN PRN Administration Insomnia Pyridoxine HCl 50 mg 08/22/19 09:00 08/22/19 21:20 Vitamin B 6 PO 50 mg BID AMAN Administration Sodium Chloride 10 ml 08/22/19 01:48 08/22/19 09:55 Flush - Normal Saline IVF 10 ml PRN PRN Administration Saline Flush Zolpidem Tartrate 5 mg 08/22/19 01:48 08/23/19 00:18 Ambien PO 5 mg HSPRN PRN Administration Insomnia - Exam General Appearance: NAD, awake alert Eye: PERRL, anicteric sclera ENT: normocephalic atraumatic, no oropharyngeal lesions Neck: supple, symmetric, no JVD, no thyromegaly, no lymphadenopathy Heart: RRR, no murmur, no gallops, no rubs, normal peripheral pulses Respiratory: CTAB, no wheezes, no rales, no ronchi, normal chest expansion, no tachypnea, normal percussion Gastrointestinal: soft, non-tender, non-distended, normal bowel sounds, no palpable masses, no hepatomegaly, no splenomegaly Extremities: no cyanosis, no clubbing, no edema Skin: normal turgor, no lesions, no rashes Neurological: facial droop Neurological - other findings: left UE weakness improving Musculoskeletal: normal tone, normal strength Psychiatric: normal affect, normal behavior, A&O x 3 Hosp A/P (1) CVA (cerebral vascular accident) Code(s): I63.9 - CEREBRAL INFARCTION, UNSPECIFIED Status: Acute Qualifiers: Precerebral and cerebral artery: middle cerebral artery Laterality of affected vessel: left (2) PAF (paroxysmal atrial fibrillation) Code(s): I48.0 - PAROXYSMAL ATRIAL FIBRILLATION Status: Chronic (3) Obesity (BMI 30.0-34.9) Code(s): E66.9 - OBESITY, UNSPECIFIED Status: Chronic (4) Carotid artery disease Code(s): I73.9 - PERIPHERAL VASCULAR DISEASE, UNSPECIFIED Status: Acute Qualifiers: Carotid artery disease type: occlusion Laterality: right Qualified Code(s ): I65.21 - Occlusion and stenosis of right carotid artery (5) Dyslipidemia Code(s): E78.5 - HYPERLIPIDEMIA, UNSPECIFIED Status: Chronic (6) GERD (gastroesophageal reflux disease) Code(s): K21.9 - GASTRO-ESOPHAGEAL REFLUX DISEASE WITHOUT ESOPHAGITIS Status: Chronic Qualifiers: Esophagitis presence: without esophagitis Qualified Code(s): K21.9 - Gastro -esophageal reflux disease without esophagitis (7) HTN (hypertension) Code(s): I10 - ESSENTIAL (PRIMARY) HYPERTENSION Status: Chronic Qualifiers: Hypertension type: essential hypertension Qualified Code(s): I10 - Essential (primary) hypertension (8) Homocysteinemia Code(s): E72.19 - OTHER DISORDERS OF SULFUR-BEARING AMINO-ACID METABOLISM Status: Acute (9) CKD (chronic kidney disease), stage III Code(s): N18.3 - CHRONIC KIDNEY DISEASE, STAGE 3 (MODERATE) Status: Chronic - Plan old records reviewed/req, plan discussed w/ family, PT/OT, social media specialist, DVT proph w/lovenox 08/22/19 Pt has recurrent right MCA territory CVA, he has carotid stenosis on right side which is complete occlusion and unable to do surgical intervention as per CV surgery in recent past, he has collateral flow, unsure that is responsible for recurrent CVA vs his h/o PAF, though afib has not documented recently, will ask neuro if chronic anticoagulation is option, he has hyperhomocystemia so will start folic acid, B12, B6 today. I spoke with son bedside and explained all result. This time will defer any more investigation to neurology. Medication reviewed as above, symptomatic treatment 08/23/19 As per family request, consult cardiology. As he has remote h/o afib, will ask cardiology about chronic anticoagulation, he has device to monitor rhythm that needs to be reported to see if he had any PAF
[2019-08-23] MEDS: Clopidogrel Bisulfate 75 MG TAB PO SCH (09:50)
[2019-08-23] MEDS: Enoxaparin Sodium 40 MG/0.4 ML SYRINGE SC SCH (09:50)
[2019-08-23] MEDS: Cyanocobalamin (Vitamin B-12) 1,000 MCG TAB PO SCH (09:50)
[2019-08-23] MEDS: pyridOXINE 50 MG (B6) TAB PO SCH ×2 (09:50→20:29)
[2019-08-23] MEDS: Aspirin 81 mg Enteric Coated Tablet PO SCH (09:51)
[2019-08-23] MEDS: Folic Acid 1 MG TAB PO SCH (09:51)
--- NOTE | 2019-08-23 13:38 | PRG ---
DATE OF TELEMEDICINE SERVICE: 08/23/2019 CHIEF COMPLAINT: Weakness. INTERVAL HISTORY: The patient is tired today and is somewhat sleepy. He was seen by vascular surgery team yesterday and there are no plans for surgery since the MRI shows more of an established infarct. At this time, the patient's was by the bedside and she states the patient is always very active and moving. He walked a good distance yesterday as well. Cardiology consult is also pending at this time. LABORATORY WORKUP: White count, no new labs this morning. PHYSICAL EXAMINATION: VITAL SIGNS: Temperature 98.5, pulse 71, respiratory rate 16, O2 sats 95, blood pressure 150/67. GENERAL APPEARANCE: Well-built, well-nourished. NEUROLOGIC: He looks sleepy and cranial nerve examination, he has left facial droop and motor examination, he has drift in the left upper extremity and strength exam, he showed distal left hand weakness and mild left arm weakness. IMAGING STUDIES: MRI of the brain reviewed and his MRI shows redemonstration of multifocal infarctions in the right middle cerebral artery territory. When compared to prior brain MRI, there has been interval increase in cytotoxic edema, some of which indicates interval temporal evolution as well as possibility of increasing volume of ischemic change with related to interval progression. IMPRESSION AND PLAN: The patient is an 79-year-old man with right MCA lesion secondary to stroke. He does have right ICA occlusion, which is complete occlusion and I understand currently there are no plans for any surgical intervention. I agree with current plans for Plavix with aspirin. The patient can be discharged when he is more stable. Job ID: [id number] [facility]
--- NOTE | 2019-08-23 14:25 | RAD ---
Exam: MODIFIED BARIUM SWALLOW: HISTORY: Dysphagia following cerebral infarct. Exposure: 2.5 minutes. 1.347 amato/cm2. FINDINGS: In the presence of a speech pathologist, the patient was administered thin liquid, honey thick, puddi ng and solid consistencies. Patient also was administered a standard 32 mm barium tablet FINDINGS: There is premature spillage into the vallecula and piriform sinus with the liquid and honey thick liq uid consistencies. There is penetration and aspiration with thin liquid consistency. There is a small amount of penetration with a honey thick liquid consistency. IMPRESSION: Penetration and aspiration with thin liquid consistency. Penetration with honey thick liquid consiste ncy. Please refer to speech pathologist report. Transcribed Date/Time: 08/23/2019 2:42 PM
[2019-08-23] MEDS: Famotidine 20 MG TAB PO SCH (20:29)
[2019-08-23] MEDS: Atorvastatin Calcium 40 MG TAB PO SCH (20:29)
--- NOTE | 2019-08-23 20:57 | CON ---
DATE OF CONSULTATION: 08/23/2019 REASON FOR CONSULTATION: Questions about the patient's monitor. PRIMARY [employer] SAL[employer] AMBASSADOR: Suzi Cam MD HISTORY OF PRESENT ILLNESS: Mr. Arias is an 79-year-old white gentleman, who comes to the hospital last week with an acute CVA. He was treated and discharged. He had a monitor placed for evaluation for cryptogenic stroke and he has a history of paroxysmal atrial fibrillation. He was brought in back today for worsening of his facial droop and left-sided weakness, so he was admitted. An MRI was repeated which showed some vasogenic edema around his previous areas of infarct, which is most likely the cause of his worsening symptoms. He did not have any new stroke. has many questions about the monitor, so she asked for Cardiology consult for this. On talking to her, she is more concerned about not changing the battery in the last few days and the monitor may not have been recording adequately. I voiced to her that currently he is being monitored, so no worries at this time as long as she continues to do what she was doing before. I reviewed our system and we have not received any reports as far as the rhythm issues. PAST MEDICAL HISTORY: 1. CVA just last week. 2. History of paroxysmal atrial fibrillation. 3. GERD. 4. Allergies. 5. Pancreatitis. 6. Carotid occlusion in the right side. 7. Hypertension. 8. Hyperlipidemia. 9. Diastolic dysfunction. SURGICAL HISTORY: Left knee replacement. OUTPATIENT MEDICATIONS: 1. Aspirin 81 a day. 2. Plavix 75 mg a day. 3. Lipitor 40 mg a day. 4. Cardizem CD 120 mg a day. 5. Lansoprazole 30 mg a day. ALLERGIES: NO KNOWN DRUG ALLERGIES. FAMILY HISTORY: Noncontributory. SOCIAL HISTORY: Lives in [place]. No smokeless tobacco. No alcohol or drug use. REVIEW OF SYSTEMS: A 12-point review of systems was done and is all negative unless stated in history of present illness. PHYSICAL EXAMINATION: VITAL SIGNS: Temperature 98.4, pulse 74, respiratory rate 20, saturations 92% on room air, blood pressure 145/79. GENERAL: Awake, alert, oriented x3. No distress. HEENT: Normocephalic and atraumatic. NECK: Supple. LUNGS: Clear. CARDIOVASCULAR: S1 and S2. No S3 or S4. No murmurs. ABDOMEN: Soft. Positive bowel sounds. EXTREMITIES: No edema. SKIN: Warm and dry. LABORATORY DATA: Laboratory work was reviewed. CBC, coags, chemistry, UA were all reviewed. Serologies were reviewed. ASSESSMENT AND PLAN: 1. Cryptogenic stroke. Certainly, possibility of embolic episode given his history of paroxysmal atrial fibrillation. However, there are no recordings of atrial fibrillation just by history. Dr. Cam is evaluating with a monitor. We will have this re-setup before he leaves the hospital. He may need a [employer] implantable loop recorder as well for this. 2. Worsening of his CVA symptoms. This is most likely related to vasogenic edema forming. This would not be a good time to start any full anticoagulation as the risk of hemorrhagic conversion is high. Would wait at least 2 to 4 weeks before starting any full anticoagulation if that were to be the plan. Thank you for letting us participate in the care of your patient. Further recommendations per Dr. Cam in the morning. Job ID: [id number]
--- NOTE | 2019-08-24 09:15 | PDOC.HOSPP ---
- Subjective Encounter Date: 08/24/19 Encounter Time: 09:13 Subjective: alert, appropriate - Objective Vital Signs & Weight: Vital Signs (12 hours) Temp Pulse Resp BP Pulse Ox 08/24/19 07:53 98.4 F 80 20 151/81 H 95 08/24/19 03:27 98.3 F 74 18 153/66 H 94 L 08/23/19 23:23 98.5 F 76 18 175/79 H 93 L Weight Weight 211 lb I&O: 08/23/19 08/24/19 08/25/19 06:59 06:59 06:59 Intake Total 680 500 Balance 680 500 Result Diagrams: 08/22/19 04:53 08/22/19 04:53 Hospitalist ROS - Medication Medications: Active Medications Generic Name Dose Route Start Last Admin Trade Name Freq PRN Reason Stop Dose Admin Aspirin 81 mg 08/22/19 09:00 08/23/19 09:51 Ecotrin PO 81 mg DAILY AMAN Administration Atorvastatin Calcium 40 mg 08/22/19 21:00 08/23/19 20:29 Lipitor PO 40 mg HS AMAN Administration Clopidogrel Bisulfate 75 mg 08/23/19 09:00 08/23/19 09:50 Plavix PO 75 mg DAILY AMAN Administration Cyanocobalamin 1,000 mcg 08/22/19 09:00 08/23/19 09:50 Vitamin B-12 PO 1,000 mcg DAILY AMAN Administration Diltiazem HCl 120 mg 08/22/19 09:00 08/23/19 09:50 Cardizem Cd PO 120 mg DAILY AMAN Administration Enoxaparin Sodium 40 mg 08/22/19 09:00 08/23/19 09:50 Lovenox SC 40 mg 0900 AMAN Administration Famotidine 20 mg 08/22/19 21:00 08/23/19 20:29 Pepcid PO 20 mg 2100 AMAN Administration Folic Acid 1 mg 08/22/19 09:00 08/23/19 09:51 Folvite PO 1 mg DAILY AMAN Administration Melatonin 3 mg 08/21/19 22:35 08/22/19 21:25 Melatonin PO 3 mg HSPRN PRN Administration Insomnia Pyridoxine HCl 50 mg 08/22/19 09:00 08/23/19 20:29 Vitamin B 6 PO 50 mg BID AMAN Administration Sodium Chloride 10 ml 08/22/19 01:48 08/22/19 09:55 Flush - Normal Saline IVF 10 ml PRN PRN Administration Saline Flush Zolpidem Tartrate 5 mg 08/22/19 01:48 08/23/19 20:29 Ambien PO 5 mg HSPRN PRN Administration Insomnia - Exam Neck: no JVD Heart: RRR, no murmur Respiratory: CTAB Gastrointestinal: soft, normal bowel sounds Extremities: no edema Musculoskeletal - other findings: L spastic hemiplegia Hosp A/P (1) Carotid occlusion, right Code(s): I65.21 - OCCLUSION AND STENOSIS OF RIGHT CAROTID ARTERY Status: Acute (2) CVA (cerebral vascular accident) Code(s): I63.9 - CEREBRAL INFARCTION, UNSPECIFIED Status: Acute Qualifiers: Precerebral and cerebral artery: middle cerebral artery Laterality of affected vessel: left (3) Dyslipidemia Code(s): E78.5 - HYPERLIPIDEMIA, UNSPECIFIED Status: Chronic (4) HTN (hypertension) Code(s): I10 - ESSENTIAL (PRIMARY) HYPERTENSION Status: Chronic Qualifiers: Hypertension type: essential hypertension Qualified Code(s): I10 - Essential (primary) hypertension - Plan cont statin, ASA cont PT/OT-rehab
[2019-08-24] MEDS: Enoxaparin Sodium 40 MG/0.4 ML SYRINGE SC SCH (10:28)
[2019-08-24] MEDS: Cyanocobalamin (Vitamin B-12) 1,000 MCG TAB PO SCH (10:29)
[2019-08-24] MEDS: pyridOXINE 50 MG (B6) TAB PO SCH ×2 (10:29→21:05)
[2019-08-24] MEDS: Folic Acid 1 MG TAB PO SCH (10:29)
[2019-08-24] MEDS: Clopidogrel Bisulfate 75 MG TAB PO SCH (10:29)
[2019-08-24] MEDS: Aspirin 81 mg Enteric Coated Tablet PO SCH (10:30)
--- NOTE | 2019-08-24 20:42 | PDOC.CPN ---
- Subjective Date: 08/24/19 Time: 18:00 - Review of Systems Respiratory: denies: cough, shortness of breath Cardiovascular: denies: chest pain Gastrointestinal: denies: nausea Musculoskeletal: denies: pain Neurological: reports: weakness (the right upper extremity is still weak but he can lift it.) - Objective Allergies/Adverse Reactions: Allergies Allergy/AdvReac Type Severity Reaction Status Date / Time No Known Allergies Allergy Verified 08/18/19 03:43 Visit Medications: Current Medications Acetaminophen (Tylenol) 650 mg PO Q4H PRN PRN Reason: Headache/Fever/Mild Pain (1-3) Hydrocodone Bitart/Acetaminophen ([place] 5/325) 1 tab PO Q4H PRN PRN Reason: Moderate Pain (4-6) Artificial Tears (Tears Naturale) 2 drop EA EYE PRN PRN PRN Reason: Dry Eyes Aspirin (Ecotrin) 81 mg PO DAILY [facility] Last Admin: 08/24/19 10:30 Dose: 81 mg Atorvastatin Calcium (Lipitor) 40 mg PO HS [facility] Last Admin: 08/23/19 20:29 Dose: 40 mg Bisacodyl (Dulcolax) 10 mg [place] DAILYPRN PRN PRN Reason: Constipation Calcium Carbonate (Tums) 1,000 mg PO Q4H PRN PRN Reason: Heartburn or Indigestion Clopidogrel Bisulfate (Plavix) 75 mg PO DAILY [facility] Last Admin: 08/24/19 10:29 Dose: 75 mg Cyanocobalamin (Vitamin B-12) 1,000 mcg PO DAILY [facility] Last Admin: 08/24/19 10:29 Dose: 1,000 mcg Diltiazem HCl (Cardizem Cd) 120 mg PO DAILY [facility] Last Admin: 08/24/19 10:28 Dose: 120 mg Enoxaparin Sodium (Lovenox) 40 mg SC 0900 [facility] Last Admin: 08/24/19 10:28 Dose: 40 mg Famotidine (Pepcid) 20 mg PO 2100 [facility] Last Admin: 08/23/19 20:29 Dose: 20 mg Folic Acid (Folvite) 1 mg PO DAILY [facility] Last Admin: 08/24/19 10:29 Dose: 1 mg Guaifenesin (Robitussin Sf) 200 mg PO Q4H PRN PRN Reason: Cough Hydralazine HCl (Apresoline) 10 mg SLOW IVP Q4H PRN PRN Reason: SBP > 180 and HR < 70 Loperamide HCl (Imodium) 2 mg PO PRN PRN PRN Reason: Diarrhea/Loose Stools Loratadine (Claritin) 10 mg PO DAILYPRN PRN PRN Reason: Sinus Symptoms Melatonin (Melatonin) 3 mg PO HSPRN PRN PRN Reason: Insomnia Last Admin: 08/22/19 21:25 Dose: 3 mg Ondansetron HCl (Zofran Odt) 4 mg PO Q6H PRN PRN Reason: Nausea/Vomiting Ondansetron HCl (Zofran) 4 mg IVP Q6H PRN PRN Reason: Nausea/Vomiting Pyridoxine HCl (Vitamin B 6) 50 mg PO BID AMAN Last Admin: 08/24/19 10:29 Dose: 50 mg Senna/Docusate Sodium (Senokot S) 2 tab PO BIDPRN PRN PRN Reason: Constipation Sodium Chloride ([place] Nasal [place] 0.65%) 0 ml EA NARE QIDPRN PRN PRN Reason: Nasal Congestion Sodium Chloride (Flush - Normal Saline) 10 ml IVF PRN PRN PRN Reason: Saline Flush Last Admin: 08/22/19 09:55 Dose: 10 ml Zolpidem Tartrate (Ambien) 5 mg PO HSPRN PRN PRN Reason: Insomnia Last Admin: 08/23/19 20:29 Dose: 5 mg Vital Signs & Weight: Vital Signs Temp Pulse Resp BP BP BP BP 08/24/19 20:00 98.4 F 77 16 173/79 H 08/24/19 15:34 98.4 F 80 20 153/71 H 08/24/19 11:30 98.4 F 75 20 153/78 H 08/24/19 10:52 177/77 H 08/24/19 10:28 80 151/81 H 08/24/19 10:08 Pulse Ox 08/24/19 20:00 93 L 08/24/19 15:34 96 08/24/19 11:30 96 08/24/19 10:52 08/24/19 10:28 08/24/19 10:08 96 Weight 211 lb - Quality Measures CV meds: Beta Francisco Javier: No, EMMA/ARB: No, Statin: Yes, ASA: Yes - Physical Exam General: no apparent distress Neck: no masses Cardiac: regular rate and rhythm Lungs: clear to auscultation Neuro: weakness Abdomen: unremarkable Extremities: no edema - Labs Result Diagrams: 08/22/19 04:53 08/22/19 04:53 Troponin/CKMB Troponin I Less than 0.010 ng/mL (< 0.028) 08/21/19 17:38 - EKG Interpretation EKG: sinus rhythm - Assessment/Plan Assessment/Plan: 1. s/p CVA. He has an event monitor but no arrythmias have been noted. He remains in NSR/ I agree with the present management with ASA+Plavix. 2. Carotid artery occlusion: followed by CV surgery, seen on recent admission. 3. Dyslipidemia. Continue statin. 4. HTN: stable. Intermittent/paroxysmal atrial fibrillation history.No arrhythmias have been noted. Continue diltiazem.Continue to wear the 30 day monitor. He may eventually need a Linq implanted. Overall cardiac status is stable.
[2019-08-24] MEDS: Zolpidem Tartrate 5 MG TAB PO PRN (21:05)
[2019-08-24] MEDS: Atorvastatin Calcium 40 MG TAB PO SCH (21:05)
[2019-08-24] MEDS: Famotidine 20 MG TAB PO SCH (21:05)
[2019-08-24] MEDS ORDERED: Amlodipine 5 MG TAB PO SCH (23:00)
[2019-08-25] MEDS ORDERED: Amlodipine 5 MG TAB PO SCH ×2 (01:30→09:00)
[2019-08-25] MEDS: Enoxaparin Sodium 40 MG/0.4 ML SYRINGE SC SCH (09:54)
[2019-08-25] MEDS: Cyanocobalamin (Vitamin B-12) 1,000 MCG TAB PO SCH (09:55)
[2019-08-25] MEDS: pyridOXINE 50 MG (B6) TAB PO SCH ×2 (09:55→18:14)
[2019-08-25] MEDS: Folic Acid 1 MG TAB PO SCH (09:55)
[2019-08-25] MEDS: Clopidogrel Bisulfate 75 MG TAB PO SCH (09:55)
[2019-08-25] MEDS: Aspirin 81 mg Enteric Coated Tablet PO SCH (09:55)
[2019-08-25 15:42] VITALS: BP 145/78; TEMP 98.2
--- NOTE | 2019-08-25 16:15 | PDOC.CPN ---
- Subjective Date: 08/25/19 Time: 16:15 Interval history: The pt seen and examined. No overnight events. No cardiac complaints. - Objective Allergies/Adverse Reactions: Allergies Allergy/AdvReac Type Severity Reaction Status Date / Time No Known Allergies Allergy Verified 08/18/19 03:43 Visit Medications: Current Medications Acetaminophen (Tylenol) 650 mg PO Q4H PRN PRN Reason: Headache/Fever/Mild Pain (1-3) Hydrocodone Bitart/Acetaminophen ([place] 5/325) 1 tab PO Q4H PRN PRN Reason: Moderate Pain (4-6) Amlodipine Besylate (Norvasc) 5 mg PO DAILY [facility] Last Admin: 08/25/19 09:55 Dose: 5 mg Artificial Tears (Tears Naturale) 2 drop EA EYE PRN PRN PRN Reason: Dry Eyes Aspirin (Ecotrin) 81 mg PO DAILY [facility] Last Admin: 08/25/19 09:55 Dose: 81 mg Atorvastatin Calcium (Lipitor) 40 mg PO HS [facility] Last Admin: 08/24/19 21:05 Dose: 40 mg Bisacodyl (Dulcolax) 10 mg [place] DAILYPRN PRN PRN Reason: Constipation Calcium Carbonate (Tums) 1,000 mg PO Q4H PRN PRN Reason: Heartburn or Indigestion Clopidogrel Bisulfate (Plavix) 75 mg PO DAILY [facility] Last Admin: 08/25/19 09:55 Dose: 75 mg Cyanocobalamin (Vitamin B-12) 1,000 mcg PO DAILY [facility] Last Admin: 08/25/19 09:55 Dose: 1,000 mcg Diltiazem HCl (Cardizem Cd) 120 mg PO DAILY [facility] Last Admin: 08/25/19 09:54 Dose: 120 mg Enoxaparin Sodium (Lovenox) 40 mg SC 0900 [facility] Last Admin: 08/25/19 09:54 Dose: 40 mg Famotidine (Pepcid) 20 mg PO 2100 [facility] Last Admin: 08/24/19 21:05 Dose: 20 mg Folic Acid (Folvite) 1 mg PO DAILY [facility] Last Admin: 08/25/19 09:55 Dose: 1 mg Guaifenesin (Robitussin Sf) 200 mg PO Q4H PRN PRN Reason: Cough Hydralazine HCl (Apresoline) 10 mg SLOW IVP Q4H PRN PRN Reason: SBP > 180 and HR < 70 Loperamide HCl (Imodium) 2 mg PO PRN PRN PRN Reason: Diarrhea/Loose Stools Loratadine (Claritin) 10 mg PO DAILYPRN PRN PRN Reason: Sinus Symptoms Melatonin (Melatonin) 3 mg PO HSPRN PRN PRN Reason: Insomnia Last Admin: 08/22/19 21:25 Dose: 3 mg Ondansetron HCl (Zofran Odt) 4 mg PO Q6H PRN PRN Reason: Nausea/Vomiting Ondansetron HCl (Zofran) 4 mg IVP Q6H PRN PRN Reason: Nausea/Vomiting Pyridoxine HCl (Vitamin B 6) 50 mg PO BID AMAN Last Admin: 08/25/19 09:55 Dose: 50 mg Senna/Docusate Sodium (Senokot S) 2 tab PO BIDPRN PRN PRN Reason: Constipation Sodium Chloride ([place] Nasal [place] 0.65%) 0 ml EA NARE QIDPRN PRN PRN Reason: Nasal Congestion Sodium Chloride (Flush - Normal Saline) 10 ml IVF PRN PRN PRN Reason: Saline Flush Last Admin: 08/22/19 09:55 Dose: 10 ml Zolpidem Tartrate (Ambien) 5 mg PO HSPRN PRN PRN Reason: Insomnia Last Admin: 08/24/19 21:05 Dose: 5 mg Vital Signs & Weight: Vital Signs Temp Pulse Pulse Pulse Resp BP BP 08/25/19 15:41 98.2 F 77 20 08/25/19 11:22 98 F 74 20 08/25/19 09:55 74 123/72 08/25/19 09:54 74 123/72 08/25/19 09:21 78 74 125/80 08/25/19 07:40 98.4 F 75 20 08/25/19 07:35 BP BP Pulse Ox 08/25/19 15:41 145/78 H 97 08/25/19 11:22 134/83 95 08/25/19 09:55 08/25/19 09:54 08/25/19 09:21 123/72 08/25/19 07:40 130/61 94 L 08/25/19 07:35 95 Weight 211 lb - Quality Measures CV meds: Beta Francisco Javier: No, EMMA/ARB: No, Statin: Yes, ASA: Yes - Physical Exam General: alert & oriented x3 Neck: supple neck Cardiac: regular rate and rhythm, S1/S2 Lungs: clear to auscultation, decreased breath sounds Skin: clear - Labs Result Diagrams: 08/22/19 04:53 08/22/19 04:53 Troponin/CKMB Troponin I Less than 0.010 ng/mL (< 0.028) 08/21/19 17:38 - Telemetry Sinus rhythms and dysrhythmias: sinus rhythm - Assessment/Plan Assessment/Plan: 1. s/p CVA. He has an event monitor but no arrythmias have been noted. He remains in NSR/ I agree with the present management with ASA+Plavix. 2. Rt Carotid artery occlusion at bifurcation : followed by CV surgery, seen on recent admission. Plan for antoehr carotid study by Dr Clay in 3 months 3. Dyslipidemia. Continue statin. 4. HTN: stable. 5. Hx of Intermittent/paroxysmal atrial fibrillation in 2015 - No arrhythmias have been noted by event monitor. Continue diltiazem. Continue to wear the 30 day monitor. He may eventually need a Linq implanted. MAR reviewed Pt. seen and eval. by me. I agree with the A/P by the [employer]. Cardiac status is stable. Waiting on rehab. bed. I will sign off. F/U in the office in 2-3 weeks. Continue with event monitor.
[2019-08-25] MEDS: Famotidine 20 MG TAB PO SCH (18:14)
[2019-08-25] MEDS: Atorvastatin Calcium 40 MG TAB PO SCH (18:14)
--- NOTE | 2019-08-25 20:53 | DIS ---
DATE OF ADMISSION: 08/21/2019 DATE OF DISCHARGE: 08/25/2019 PRIMARY CARE PROVIDER: [facility] DISCHARGE DIAGNOSES: 1. Ischemic cerebrovascular accident, recurrent, right MCA territory. 2. Complete occlusion of right carotid artery. 3. Acute kidney injury. 4. Hyponatremia. CONSULTATIONS DURING THIS HOSPITALIZATION: 1. Cardiovascular Surgery, Dr. Clay. 2. Cardiology, Dr. Camargo. 3. Neurology, Dr. Meek. CONDITION OF PATIENT ON THE DAY OF DISCHARGE: Stable. I assessed Mr. Arias on the day of discharge. He denies any chest pain or shortness of breath. Vital signs are stable. S1 and S2 are heard, regular. Lungs are clear to auscultation bilaterally. DISCHARGE MEDICATIONS: 1. Amlodipine 5 mg daily. 2. Cetirizine 10 mg daily. 3. Lansoprazole 15 mg daily. 4. Aspirin 81 mg daily. 5. Lipitor 40 mg at bedtime. 6. Plavix 75 mg daily. 7. Cardizem CD 120 mg daily. HOSPITAL COURSE: Mr. Arias is a pleasant 79-year-old gentleman, who was admitted to [facility] on 08/21/2019, for recurrent ischemic cerebrovascular accident. MRI of the brain on 08/22, showed redemonstration of multifocal infarctions at the right MCA territory. There was interval increase in cytotoxic edema when compared to prior MRI. He was seen by Cardiovascular Surgery for a complete right MCA occlusion. There were no surgical options available. They recommended continuing his aspirin and Plavix and controlling his blood pressure. He was also seen by Cardiology Service. There was a history of possible paroxysmal atrial fibrillation, but no documented history. He had a recorder placed. Cardiology Service will follow up with him as outpatient. The risk of hemorrhagic conversion was high, therefore he was not started on any full anticoagulation. Many thanks for allowing me to participate in your patient's care. Please feel free to contact me with any questions or concerns. The patient was seen by Therapy Services. He was recommended inpatient rehabilitation. The patient and his family refused inpatient rehabilitation and decided to pursue outpatient therapy. Accordingly, he is being discharged home. DISCHARGE DESTINATION: Home. TIME SPENT: Total amount of time spent coordinating this discharge: 31 minutes. Job ID: [id number]
== END 2019-08-25 18:26 | disposition home or self-care (01) | DRG 64 ==
LOC: ERS 17:22 → 2SE 18:30 → ERS 20:20
PROVIDERS: ADMIT Internal Medicine; ATTEND Internal Medicine
DX: I63.512 Cerebral infarction due to unspecified occlusion or stenosis of left middle cerebral artery (principal); G93.6 Cerebral edema; E72.11 Homocystinuria; G81.94 Hemiplegia, unspecified affecting left nondominant side; N17.9 Acute kidney failure, unspecified; E87.1 Hypo-osmolality and hyponatremia; R29.705 NIHSS score 5; K21.9 Gastro-esophageal reflux disease without esophagitis; Z96.652 Presence of left artificial knee joint; F17.220 Nicotine dependence, chewing tobacco, uncomplicated; R40.2412 Glasgow coma scale score 13-15, at arrival to emergency department; E78.5 Hyperlipidemia, unspecified; I48.0 Paroxysmal atrial fibrillation; E66.9 Obesity, unspecified; I12.9 Hypertensive chronic kidney disease with stage 1 through stage 4 chronic kidney disease, or unspecified chronic kidney disease; N18.3 Chronic kidney disease, stage 3 (moderate); I65.21 Occlusion and stenosis of right carotid artery; R29.810 Facial weakness; Z86.73 Personal history of transient ischemic attack (TIA), and cerebral infarction without residual deficits; Z79.02 Long term (current) use of antithrombotics/antiplatelets; Z79.899 Other long term (current) drug therapy; Z68.34 Body mass index [BMI] 34.0-34.9, adult
CPT/HCPCS: 36415; 36416; 70450; 70551; 74230; 80048; 80053; 81001; 82550; 83090; 84484; 85025; 85610; 85730; 86780; 93005; J1650; J2060

== ENCOUNTER 2019-12-27 08:26 | Outpatient (CLI) | payer MEDICARE ==
--- NOTE | 2019-12-27 10:09 | CT ---
CT ANGIOGRAM NECK WITH CONTRAST: DATE: 12/27/2019 HISTORY: 79-year-old male with severe right carotid stenosis and stroke. Dr. Tenorio reported the critical stenosis of the right internal carotid artery by telephone to Dr. Cam' s nurse Barby Dotson LVN, by telephone, at 9:57 AM on 12/27/2019 TECHNIQUE: After IV contrast injection, arterial bolus chasing technique scan performed from 3 cm inferior to ca stevie to superior edges of maxillary sinuses. Coronal and sagittal 3-D MIP reconstructions. FINDINGS: Aortic arch: Ectasia and scattered calcified plaque. Brachiocephalic: Ectasia. No high-grade stenosis. Right subclavian mild stenosis at origin. No high-grade stenosis. Right common carotid: Mild stenosis at origin. No high-grade stenosis. Left subclavian: Noncalcified atherosclerotic plaque distally. No high-grade stenosis. Left common carotid: Tortuous proximally. No high-grade stenosis. Right vertebral: Prominent partially calcified plaque at origin causing approximately 50-75 % stenosi s. No high-grade stenosis in rest of vessel. Left vertebral: High-grade, proximally 75% stenosis at origin. No high-grade stenosis in rest of vess el. Right internal carotid: Large atheromatous plaque, both calcified and noncalcified, mostly noncalcifi ed causing extremely severe stenosis, approximately 90-99% stenosis, from a few millimeters superior to the origin to a distance of 1.5 cm distal to the origin, causing the rest of the vessel c ranial to it to be very small in caliber (string sign), which continues into diffusely small caliber right carotid siphon. Left internal carotid: Multifocal moderate calcified and noncalcified plaque causing up to 30% stenos is in proximal left internal carotid. Rest of vessel is normal in caliber. IMPRESSION: 1) critical stenosis (90-99%) at proximal right internal carotid artery, with string sign throughout the rest of the vessel superior to it. 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 3) moderate to severe stenosis at origin of right vertebral artery.
[2019-12-27] MEDS ORDERED: Iopamidol 370 76% 100 ML VIAL ONE (13:56)
== END 2019-12-27 08:27 | disposition home or self-care (01) ==
LOC: CT 08:26
PROVIDERS: ATTEND Internal Medicine Cardiovascular Disease
DX: I65.21 Occlusion and stenosis of right carotid artery (principal); I65.03 Occlusion and stenosis of bilateral vertebral arteries
CPT/HCPCS: 70498; 82565; Q9967

== ENCOUNTER 2021-08-07 13:14 | Outpatient (CLI) | payer MEDICARE | END 2021-08-07 13:15 | disposition home or self-care (01) | LOC: BICCT 13:14 | PROVIDERS: ATTEND Thoracic Surgery (Cardiothoracic Vascular Surgery) | DX: I65.21 Occlusion and stenosis of right carotid artery (principal); I65.02 Occlusion and stenosis of left vertebral artery | CPT/HCPCS: 70498; 82565 ==

== ENCOUNTER 2023-09-21 12:36 | Outpatient (CLI) | payer MEDICARE | END 2023-09-21 12:37 | disposition home or self-care (01) | LOC: CT 12:36 | PROVIDERS: ATTEND Urology | DX: I65.23 Occlusion and stenosis of bilateral carotid arteries (principal); E04.1 Nontoxic single thyroid nodule | CPT/HCPCS: 70498; 82565 ==